=== PATIENT | female | born 1970 | race Caucasian/White ===

== ENCOUNTER 2016-12-31 16:21 | Emergency (ER) | payer BC ==
[2016-12-31 16:34] VITALS: BP 131/86
--- NOTE | 2016-12-31 17:14 | UC ---
Abdominal Pain Female HPI - HPI Summary HPI Summary: SEVERAL WEEKS OF BLOATING ABDOMINAL PAIN AND DISTENSION AND DECREASED APPETITE. NO FEVER. HAD WORSE EPISODE OF DISTENSION AND ABDOMINAL PAIN OF Monday12/29/16 ; DID NOT GET ED CARE AT THAT TIME. HAD ULTRASOUND SCHEDULED FOR JANUARY, HOWEVER SHE CALLED PRIMARY CARE ([place]) AND PRIMARY CARE SERVICE RECOMMENDED TO PATIENT THAT SHE GET ULTRASOUND AND LAB WORK PROMPTLY. HX OF CHOLECYSTECTOMY. NO URINARY FREQUENCY OR DYSURIA. HISTORY OF ELEVATED LIVER ENZYMES. INFREQUENT ETOH USE. - History of Current Complaint Chief Complaint: UCGI Stated Complaint: ABDOMINAL PAIN Time Seen by Provider: 12/31/16 16:43 Hx Obtained From: Patient Onset/Duration: Gradual Onset, Lasting Weeks, Still Present Severity Initially: Severe Severity Currently: Mild Location: Diffuse Radiates: No Character: Aching, Cramping, Dull, Sharp Aggravating Factor(s): Nothing Alleviating Factor(s): Nothing Associated Signs and Symptoms: Positive: Decreased Appetite. Negative: Diaphoresis, Fever, Cough, Chest Pain, Dizzy, Blood in Stool, Urinary Symptoms, Vaginal Bleeding, Vomiting - Risk Factors Ectopic Risk Factor: Negative Allergies/Adverse Reactions: Allergies Allergy/AdvReac Type Severity Reaction Status Date / Time Clindamycin Allergy Severe CAN'T HAVE Verified 12/31/16 16:35 BECAUSE OF HX C-DIFF Epinephrine Allergy Severe See Comment Verified 12/31/16 16:35 Sulfa Drugs Allergy Mild Hives Verified 12/31/16 16:35 Buspirone Allergy Unknown Verified 12/31/16 16:35 Reaction Details Corticosteroids Allergy elevated Verified 12/31/16 16:35 blood pressure Dexamethasone Allergy Unknown Verified 12/31/16 16:35 Reaction Details Latex Allergy Rash Verified 12/31/16 16:35 Levofloxacin [From Levaquin] Allergy Unknown Verified 12/31/16 16:35 Reaction Details Midazolam [From Versed] Allergy Unknown Verified 12/31/16 16:35 Reaction Details Sulfamethoxazole Allergy Hives Verified 12/31/16 16:35 w/Trimethoprim [From Bactrim] eggplant Allergy Unknown Uncoded 12/31/16 16:35 Reaction Details enviromental Allergy Eyes Uncoded 05/29/14 10:26 Itchy/Swollen/Red/Watery Home Medications: Home Medications [place]-3 Fatty Acids [Fish Oil] 12/31/16 [History Confirmed 12/31/16] PMH/Surg Hx/FS Hx/Imm Hx Previously Healthy: Yes Other History Of: Negative For: Anticoagulant Therapy - Surgical History Surgical History: Yes Surgery Procedure, Year, and Place: hysterectomy, massive hemorraghe 2 wks after hysterectomy, FIBROIDS, BREAST BIOPSY bilat benign, TONSILLECTOMY, APPENDECTOMY, CHOLESCYSTECTOMY - Family History Known Family History: Positive: Other - MOTHER ELEVATED LIVER ENZYMES - Social History Lives: With Family Alcohol Use: Occasionally Substance Use Type: None Smoking Status (MU): Former Smoker Review of Systems Constitutional: Negative Skin: Negative Eyes: Negative ENT: Negative Respiratory: Negative Cardiovascular: Negative Gastrointestinal: Abdominal Pain, Other - ABDOMINAL DISTENSION Genitourinary: Negative Motor: Negative Neurovascular: Negative Musculoskeletal: Negative Neurological: Negative Psychological: Negative All Other Systems Reviewed And Are Negative: Yes Physical Exam Triage Information Reviewed: Yes Appearance: Well-Appearing, No Pain Distress, Well-Nourished Vital Signs: Initial Vital Signs Temp 98.0 F 12/31/16 16:28 Pulse 71 12/31/16 16:28 Resp 12 12/31/16 16:28 BP 131/86 12/31/16 16:28 Pulse Ox 97 12/31/16 16:28 Vital Signs Reviewed: Yes Eye Exam: Normal ENT Exam: Normal ENT: Positive: Normal ENT inspection, TMs normal Dental Exam: Normal Neck exam: Normal Neck: Positive: Supple, Nontender, No Lymphadenopathy Respiratory Exam: Normal Respiratory: Positive: Chest non-tender, Lungs clear, Normal breath sounds, No respiratory distress, No accessory muscle use Cardiovascular Exam: Normal Cardiovascular: Positive: RRR, No Murmur, Pulses Normal, Brisk Capillary Refill Abdominal Exam: Normal Abdomen Description: Positive: Nontender, Soft, Hepatomegaly - MILD. Negative: Bruit, Distended, Guarding, McBurney's Point Tenderness, Splenomegaly Musculoskeletal Exam: Normal Neurological Exam: Normal Psychological Exam: Normal Skin Exam: Normal Abd Pain Female Course/Dx - Differential Dx/Diagnosis Differential Diagnosis: Appendicitis, Bowel Obstruction, Constipation, Hepatitis , Pancreatitis Provider Diagnoses: ABDOMINAL PAIN - Physician Notification/Consults Discussed Care of Patient With: SANDEEP Time Discussed With Above Provider: 16:45 - SANDEEP Discharge - Discharge Plan Condition: Stable Disposition: [facility] Referrals: Angeline Donald MD [Primary Care Provider] -
== END 2016-12-31 17:14 | disposition short-term general hospital (02) ==
LOC: UCEAST 16:21
DX: R10.9 Unspecified abdominal pain (principal); Z87.891 Personal history of nicotine dependence
CPT/HCPCS: 93005; 99212; G0463

== ENCOUNTER → 2016-12-31 17:33 | Emergency (ER) | payer BC ==
[~2016-12-31 17:33] MED LIST: Iohexol 300* (CONTRAST) 10 ML SDV IV ONE
[2016-12-31 18:15] LABS: Urine Bilirubin Negative (Negative); Urine Glucose Negative (Negative); Urine Nitrite Negative (Negative)
[2016-12-31 18:21] LABS: Hematocrit 39 % (35-47); Hemoglobin 13.3 g/dl (12.0-16.0); Mean Corpuscular HGB Conc 34 g/dl (31-36); Mean Corpuscular Hemoglobin 34 pg (27-31); Mean Corpuscular Volume 100 fL (80-97); Mean Platelet Volume 9 um3 (7.4-10.4); Red Blood Count 3.93 10^6/ul (4.0-5.4); Red Cell Distribution Width 12 % (10.5-15); White Blood Count 7.3 10^3/ul (3.5-10.8)
[2016-12-31 18:27] LABS: Albumin 4.6 g/dL (3.2-5.2); BUN/Creatinine Ratio 21.7 (8-20); Calcium 9.6 mg/dL (8.6-10.3); EGFR African American 117.8 (>60); EGFR Non-African American 91.6 (>60); Globulin 2.9 g/dL (2-4); Potassium 3.8 mmol/L (3.5-5.0); Total Bilirubin 0.4 mg/dL (0.2-1.0); Total Protein 7.5 g/dL (6.4-8.9)
--- NOTE | 2016-12-31 19:22 | ED ---
GI/ HPI - HPI Summary HPI Summary: 46F presents with abdominal blooding and epigastric pain for two weeks. She has had hysertectomy, cholecystomy, and appendectomy in past. She has a history of elevated liver enzymes so primary was concerned has fatty liver disease so has u/s scheduled. She denies any n/v. She admits to chronic diarrhea and constipation. She denies any dysuria, hematuria, flank pain, frequnecy, urgency. She is currently taking fish oil as she has high triglycerides. She denies any history of ETOH or tyenlol abuse. She states she has chronic elevated LFT due to chronic lyme. - History of Current Complaint Chief Complaint: EDAbdPain Time Seen by Provider: 12/31/16 17:47 Stated Complaint: ABD PAIN- SENT FROM Pain Intensity: 5 - Allergy/Home Medications Allergies/Adverse Reactions: Allergies Allergy/AdvReac Type Severity Reaction Status Date / Time Clindamycin Allergy Severe CAN'T HAVE Verified 12/31/16 16:35 BECAUSE OF HX C-DIFF Epinephrine Allergy Severe See Comment Verified 12/31/16 16:35 Sulfa Drugs Allergy Mild Hives Verified 12/31/16 16:35 Buspirone Allergy Unknown Verified 12/31/16 16:35 Reaction Details Corticosteroids Allergy elevated Verified 12/31/16 16:35 blood pressure Dexamethasone Allergy Unknown Verified 12/31/16 16:35 Reaction Details Latex Allergy Rash Verified 12/31/16 16:35 Levofloxacin [From Levaquin] Allergy Unknown Verified 12/31/16 16:35 Reaction Details Midazolam [From Versed] Allergy Unknown Verified 12/31/16 16:35 Reaction Details Sulfamethoxazole Allergy Hives Verified 12/31/16 16:35 w/Trimethoprim [From Bactrim] eggplant Allergy Unknown Uncoded 12/31/16 16:35 Reaction Details enviromental Allergy Eyes Uncoded 05/29/14 10:26 Itchy/Swollen/Red/Watery PMH/Surg Hx/FS Hx/Imm Hx Endocrine/Hematology History: Denies: Hx Anticoagulant Therapy, Hx Diabetes Cardiovascular History: Reports: Hx Hypertension, Other Cardiovascular Problems/ Disorders - TACHYCARDIA, MITRLOL AND BICUSPID VALVE PROLAPSE Denies: Hx Pacemaker/ICD Respiratory History: Reports: Hx Asthma - SEASONAL Sensory History: Denies: Hx Hearing Aid Neurological History: Denies: Hx Headaches Psychiatric History: Reports: Hx Panic Disorder - pt takes xanax for anxiety - Cancer History Hx Chemotherapy: No Hx Radiation Therapy: No - Surgical History Surgery Procedure, Year, and Place: hysterectomy, massive hemorraghe 2 wks after hysterectomy, FIBROIDS, BREAST BIOPSY bilat benign, TONSILLECTOMY, APPENDECTOMY, CHOLESCYSTECTOMY Infectious Disease History: No Infectious Disease History: Reports: Hx Clostridium Difficile Denies: Traveled Outside the [place] in Last 30 Days - Family History Known Family History: Positive: Other - MOTHER ELEVATED LIVER ENZYMES - Social History Alcohol Use: Daily Substance Use Type: Reports: None Smoking Status (MU): Former Smoker Review of Systems Negative: Fever Negative: Chest Pain Negative: Shortness Of Breath Positive: Abdominal Pain, Diarrhea. Negative: Vomiting, Nausea All Other Systems Reviewed And Are Negative: Yes Physical Exam Triage Information Reviewed: Yes Vital Signs On Initial Exam: Initial Vitals Temp Pulse Resp BP Pulse Ox 96.9 F 63 18 137/79 99 12/31/16 17:36 12/31/16 17:36 12/31/16 17:36 12/31/16 17:36 12/31/16 17:36 Vital Signs Reviewed: Yes Appearance: Positive: Well-Appearing Skin: Positive: Warm, Dry Head/Face: Positive: Normal Head/Face Inspection Eyes: Positive: Normal, Conjunctiva Clear ENT: Positive: Normal ENT inspection, Pharynx normal, TMs normal Respiratory/Lung Sounds: Positive: Clear to Auscultation, Breath Sounds Present Cardiovascular: Positive: Normal, RRR Abdomen Description: Positive: Soft, Other: - mild tenderness in epigastric region, no rebound Bowel Sounds: Positive: Present - Ashley Coma Scale Coma Scale Total: 15 Diagnostics - Vital Signs Vital Signs Temp Pulse Resp BP Pulse Ox 12/31/16 19:00 61 98 12/31/16 18:08 58 97 12/31/16 18:04 98.7 F 59 20 141/81 97 12/31/16 17:36 96.9 F 63 18 137/79 99 - Laboratory Lab Results: Lab Results 12/31/16 12/31/16 12/31/16 Range/Units 17:55 17:55 17:55 WBC 7.3 (3.5-10.8) 10^3/ul RBC 3.93 L (4.0-5.4) 10^6/ul Hgb 13.3 (12.0-16.0) g/dl Hct 39 (35-47) % MCV 100 H (80-97) fL MCH 34 H (27-31) pg MCHC 34 (31-36) g/dl RDW 12 (10.5-15) % Plt Count 243 (150-450) 10^3/ul MPV 9 (7.4-10.4) um3 Neut % (Auto) 66.0 (38-83) % Lymph % (Auto) 25.6 (25-47) % [place] % (Auto) 6.6 (1-9) % Eos % (Auto) 1.2 (0-6) % Baso % (Auto) 0.6 (0-2) % Absolute Neuts (auto) 4.8 (1.5-7.7) 10^3/ul Absolute Lymphs (auto) 1.9 (1.0-4.8) 10^3/ul Absolute Monos (auto) 0.5 (0-0.8) 10^3/ul Absolute Eos (auto) 0.1 (0-0.6) 10^3/ul Absolute Basos (auto) 0 (0-0.2) 10^3/ul Absolute Nucleated RBC 0 10^3/ul Nucleated RBC % 0 Sodium 137 (133-145) mmol/L Potassium 3.8 (3.5-5.0) mmol/L Chloride 104 (101-111) mmol/L Carbon Dioxide 27 (22-32) mmol/L Anion Gap 6 (2-11) mmol/L BUN 15 (6-24) mg/dL Creatinine 0.69 (0.51-0.95) mg/dL Est GFR ( Amer) 117.8 (>60) Est GFR (Non-Af Amer) 91.6 (>60) BUN/Creatinine Ratio 21.7 H (8-20) Glucose 100 (70-100) mg/dL Calcium 9.6 (8.6-10.3) mg/dL Total Bilirubin 0.40 (0.2-1.0) mg/dL AST 39 (13-39) U/L ALT 37 (7-52) U/L Alkaline Phosphatase 59 (34-104) U/L Troponin I 0.00 (<0.04) ng/mL C-React Prot High Sens 0.94 mg/L Total Protein 7.5 (6.4-8.9) g/dL Albumin 4.6 (3.2-5.2) g/dL Globulin 2.9 (2-4) g/dL Albumin/Globulin Ratio 1.6 (1-3) Lipase 29 (11.0-82.0) U/L Urine Color [place] Urine Appearance Cloudy Urine pH 5.0 (5-9) Ur Specific [place] 1.020 (1.010-1.030) Urine Protein Negative (Negative) Urine Ketones Negative (Negative) Urine Blood Negative (Negative) Urine Nitrate Negative (Negative) Urine Bilirubin Negative (Negative) Urine Urobilinogen Negative (Negative) Ur Leukocyte Esterase Negative (Negative) Urine Glucose Negative (Negative) Urine Ascorbic Acid * H (Negative) Result Diagrams: 12/31/16 17:55 12/31/16 17:55 Lab Statement: Any lab studies that have been ordered have been reviewed, and results considered in the medical decision making process. - CT abd CT Interpretation: Positive (See Comments) - IMPRESSION: 1. NO EVIDENCE FOR ACUTE FINDING OR CAUSE FOR THE PATIENT'S ABDOMINAL PAIN IS SEEN. 2. MILD HEPATOMEGALY AND HEPATIC STEATOSIS. 3. STATUS POST CHOLECYSTECTOMY, APPENDECTOMY AND HYSTERECTOMY. 4. 2.3 CM LEFT OVARIAN CYST MOST CONSISTENT WITH A FOLLICULAR CYS CT Interpretation Completed By: Radiologist - EKG No standard instances Cardiac Rate: NL EKG Rhythm: Sinus Rhythm ST Segment: Normal GIGU Course/Dx - Course Course Of Treatment: 46F presents with abdominal blooding and epigastric pain for two weeks. She has had hysertectomy, cholecystomy, and appendectomy in past. She has a history of elevated liver enzymes so primary was concerned has fatty liver disease so has u/s scheduled. She denies any n/v. She admits to chronic diarrhea and constipation. She denies any dysuria, hematuria, flank pain, frequnecy, urgency. on exam tender in epigastric. got CT to make sure no ulcer vs SBO.labs wbc, LFTS normal. troponin and EKG normal. CT shows fatty liver disease. told to follow up with primary for continued management. patient understands and agrees with plan - Diagnoses Differential Diagnoses - Female: Bowel Obstruction, Gastritis, Gerd, Urinary Tract Infection Provider Diagnoses: Abdominal pain Discharge - Discharge Plan Condition: Good Disposition: HOME Patient Education Materials: Non-Alcoholic Fatty Liver Disease (ED) Referrals: Angeline Donald MD [Primary Care Provider] - Additional Instructions: Take ibuprofen every 6 hours as needed Avoid large amounts of alcohol Follow up with primary Return to ED if develop any new or worsening symptoms
[2016-12-31 19:56] VITALS: BP 116/81
--- NOTE | 2016-12-31 20:36 | RAD ---
INDICATION: Epigastric abdominal pain. COMPARISON: Comparison is made with a prior CT of the abdomen and pelvis from May 29, 2014. TECHNIQUE: A CT scan of the abdomen and pelvis was performed with intravenous and oral contrast following intravenous injection of 91 ml of Omnipaque 300 nonionic contrast. Contiguous axial sections were obtained from the lung bases through the symphysis pubis. Images were reconstructed in the coronal and sagittal planes. FINDINGS: There is mild dependent bilateral lower lobe subsegmental atelectasis. No pleural effusion is present. The liver is mildly enlarged and decreased in attenuation consistent with fatty infiltration. There is a 1.2 cm cyst in the posterior segment of the right hepatic lobe which is increased minimally in size from the prior study. There is also a cyst present along the capsule of the liver on the lateral inferior aspect of the right hepatic lobe measuring 2.8 x 1.2 cm in size which is unchanged from the prior study. The patient is status post cholecystectomy. There is mild prominence of the common bile duct likely representing postcholecystectomy changes. No intrahepatic ductal distention is seen. The pancreas appears to be within normal limits. The kidneys and adrenal glands are normal in size. No hydronephrosis is seen. There is a slightly prominent extrarenal pelvis on the left side. The aorta is normal in caliber with mild calcific plaque present. No significant enlarged retroperitoneal lymph nodes are seen. The stomach, small and large bowel appear nondistended. The patient is status post appendectomy by history. There is no evidence for diverticulitis or colitis. The patient is status post hysterectomy. No free intraperitoneal air or fluid is seen. There is a 2.3 x 1.6 cm left ovarian cyst most consistent with a follicular cyst. No significant focal osseous abnormality is seen. IMPRESSION: 1. NO EVIDENCE FOR ACUTE FINDING OR CAUSE FOR THE PATIENT'S ABDOMINAL PAIN IS SEEN. 2. MILD HEPATOMEGALY AND HEPATIC STEATOSIS. 3. STATUS POST CHOLECYSTECTOMY, APPENDECTOMY AND HYSTERECTOMY. 4. 2.3 CM LEFT OVARIAN CYST MOST CONSISTENT WITH A FOLLICULAR CYST.
== END | disposition home or self-care (01) ==
LOC: ED 17:33
DX: R10.13 Epigastric pain (principal); K52.9 Noninfective gastroenteritis and colitis, unspecified; K59.09 Other constipation; I10 Essential (primary) hypertension; I34.1 Nonrheumatic mitral (valve) prolapse; J45.909 Unspecified asthma, uncomplicated; F41.0 Panic disorder [episodic paroxysmal anxiety]; Z90.710 Acquired absence of both cervix and uterus; Z90.49 Acquired absence of other specified parts of digestive tract; Z88.2 Allergy status to sulfonamides; Z88.8 Allergy status to other drugs, medicaments and biological substances; Z88.1 Allergy status to other antibiotic agents; Z91.040 Latex allergy status; Z87.891 Personal history of nicotine dependence
CPT/HCPCS: 36415; 74177; 80053; 81003; 83690; 84484; 85025; 86141; 93005; 99282; Q9967